=== PATIENT | male | born 1990 | race Caucasian/White ===

== ENCOUNTER 2020-09-20 05:04 | Emergency (ER) | payer SELFPAY ==
[~2020-09-20] VITALS: Ht 177.8 cm; Wt 89.0 kg
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
[2020-09-20] MEDS ORDERED: LORazepam 2 MG/ML, 1ML ONE (05:41)
[2020-09-20] MEDS ORDERED: KETAMINE 100 MG/ML, 5ML IM ONE (06:00)
[2020-09-20] MEDS ORDERED: LORazepam 2 MG/ML, 1ML IM ONE (06:00)
--- NOTE | 2020-09-20 06:32 | NUR ---
PT TO CT.
--- NOTE | 2020-09-20 06:46 | NUR ---
REPORT FROM ROZINA FRANCISCO
--- NOTE | 2020-09-20 06:46 | NUR ---
REPORT GIVEN TO DIOGO HANDY
--- NOTE | 2020-09-20 06:51 | NUR ---
PT BACK FROM CT. PT SLEEPING ON GURNEY, RESPIRATIONS EVEN AND UNLABORED. PT CONNECTED TO ALL MONITORS. CALL LIGHT WITHIN REACH
--- NOTE | 2020-09-20 07:40 | NUR ---
PT INCONTINENT, SPLINT BECAME WET. EDTA AT BS FOR NEW SPLINT. PT REMAINS SLEEPING, RESPIRATIONS EVEN AND UNLABORED. NADN/VSS. CALL LIGHT WITHIN REACH
--- NOTE | 2020-09-20 08:01 | NUR ---
PT CONTINUES SLEEPING ON GURNEY, RESPIRATIONS EVEN AND UNLABORED. VSS/NADN. CALL LIGHT WITHIN REACH.
--- NOTE | 2020-09-20 08:57 | NUR ---
PT SLEEPING ON GURNEY, RESPIRATIONS EVEN AND UNLABORED. NADN/VSS. MONITORS IN PLACE. CALL LIGHT WITHIN REACH. NO NEEDS AT THIS TIME, WILL CONTINUE TO MONITOR
[2020-09-20 10:06] VITALS: BP 117/73
--- NOTE | 2020-09-20 10:07 | NUR ---
PT CONTINUES SLEEPING ON GURNEY, NADN/VSS. RESPIRATIONS EVEN AND UNLABORED. CALL LIGHT WITHIN REACH
--- NOTE | 2020-09-20 11:40 | NUR ---
Patient given discharge instructions and RX, they have confirmed that they understand the instructions. PT REFUSED CRUTCH WALKING INSTRUCTIONS, ERP AWARE.
== END 2020-09-20 11:42 | disposition home or self-care (01) ==
LOC: ED 11:30
DX: S82.431A Displaced oblique fracture of shaft of right fibula, initial encounter for closed fracture (principal); S93.04XA Dislocation of right ankle joint, initial encounter; S01.01XA Laceration without foreign body of scalp, initial encounter; F10.129 Alcohol abuse with intoxication, unspecified; Y04.8XXA Assault by other bodily force, initial encounter; Y93.89 Activity, other specified; Y92.89 Other specified places as the place of occurrence of the external cause; Y99.8 Other external cause status
CPT/HCPCS: 12001; 27788; 70450; 73610; 73700; 96372; 99152; 99291; J2060

== ENCOUNTER 2020-09-23 15:30 | Day surgery (SDC) | payer MEDICAID ==
[~2020-09-23] VITALS: Ht 177.8 cm; Wt 87.5 kg
[2020-09-23] MEDS ORDERED: LACTATED RINGERS 1,000 ML IV SCH (16:00)
[2020-09-23] MEDS ORDERED: CHLORHEXIDINE 15 ML UDC PO ONE (16:00)
[2020-09-23 16:06] VITALS: BP 107/70
[2020-09-23] MEDS ORDERED: MIDAZOLAM 1 MG/ML, 2ML ONE ×2 (16:14→16:15)
[2020-09-23] MEDS ORDERED: NAPR-872 PO (16:15)
[2020-09-23] MEDS ORDERED: FENTANYL PF 250 MCG/5ML ONE (16:15)
[2020-09-23] MEDS ORDERED: NAPR-816 PO (16:15)
[2020-09-23] MEDS ORDERED: ROPIvacaine/PF 0.5%, 30 ML ONE ×2 (16:18)
[2020-09-23] MEDS ORDERED: EPINEPHRINE 1 MG/ML, 1ML ONE (16:18)
[2020-09-23] MEDS ORDERED: ONDANSETRON 2MG/ML, 2ML ONE (20:25)
[2020-09-23] MEDS ORDERED: CEFAZOLIN 1,000 MG ONE (20:25)
[2020-09-23] MEDS ORDERED: PROPOFOL 10 MG/ML, 20ML ONE (20:25)
[2020-09-23] MEDS ORDERED: DEXAMETHASONE 4 MG/ML, 1ML ONE (20:25)
[2020-09-23] MEDS ORDERED: PROMETHAZINE 25 MG/ML, 1ML IVPush PRN (21:00)
[2020-09-23] MEDS ORDERED: MEPERIDINE/PF 25MG/0.5ML IVPush PRN (21:00)
[2020-09-23] MEDS ORDERED: ACETAMINOPHEN 325 MG TABLET PO PRN (21:00)
[2020-09-23] MEDS ORDERED: hydrALAzine 20 MG/ML, 1ML IV PRN (21:00)
[2020-09-23] MEDS ORDERED: FENTANYL PF 100 MCG/2ML IV PRN (21:00)
[2020-09-23] MEDS ORDERED: OXYcodone 5 MG/5 ML ORAL.SOL UDC PO PRN (21:00)
[2020-09-23] MEDS ORDERED: MIDAZOLAM 1 MG/ML, 2ML IV PRN (21:00)
[2020-09-23] MEDS ORDERED: OXYC-302 PO (22:15)
== END 2020-09-23 23:10 | disposition home or self-care (01) ==
LOC: OUT 15:30 → 4NE 17:00 → OUT 23:10
PROVIDERS: ATTEND Orthopaedic Surgery
DX: S82.61XA Displaced fracture of lateral malleolus of right fibula, initial encounter for closed fracture (principal); S93.431A Sprain of tibiofibular ligament of right ankle, initial encounter; F17.210 Nicotine dependence, cigarettes, uncomplicated; Z20.822 Contact with and (suspected) exposure to COVID-19; Z79.899 Other long term (current) drug therapy; Y04.2XXA Assault by strike against or bumped into by another person, initial encounter; Y93.89 Activity, other specified; Y92.89 Other specified places as the place of occurrence of the external cause; Y99.8 Other external cause status
CPT/HCPCS: 27792; 27829; 64415; 64447; 73600; 87635; C1713; J0171; J0690; J1100; J2250; J2405; J2704; J2795; J3010; J7120; 76000; G0378

== ENCOUNTER 2020-09-27 14:40 | Emergency (ER) | payer SELFPAY ==
[~2020-09-27] VITALS: Ht 177.8 cm; Wt 85.0 kg
[~2020-09-27 14:40] MED LIST: NAPR-816 PO; NAPR-872 PO; OXYC-302 PO
[2020-09-27 14:56] VITALS: BP 136/73
== END 2020-09-27 16:43 | disposition home or self-care (01) ==
LOC: ED 16:35
DX: S01.01XD Laceration without foreign body of scalp, subsequent encounter (principal); X58.XXXD Exposure to other specified factors, subsequent encounter
CPT/HCPCS: 99282